=== PATIENT | female | born 2000 | race Caucasian/White ===

== ENCOUNTER 2020-10-01 10:54 | Outpatient (REF) | payer BC, SELFPAY | END 2020-10-01 10:55 | disposition home or self-care (01) | LOC: HO.LAB 10:54 | PROVIDERS: Visit Provider Internal Medicine | DX: Z20.828 Contact with and (suspected) exposure to other viral communicable diseases (principal) | CPT/HCPCS: C9803; U0003 ==

== ENCOUNTER 2021-06-28 21:56 | Emergency (ER) | payer BC, MEDICAID, SELFPAY ==
[2021-06-28 22:21] VITALS: BP 109/73; PULSE 96; RESP 18; TEMP 37.1; O2SAT 98; BMI 34.0
[2021-06-28 23:03] VITALS: BP 116/71; PULSE 92; RESP 20; TEMP 37.1; O2SAT 98
--- NOTE | 2021-06-29 00:02 | PC.NURSE ---
Per roque Duff to v/o tylenol, motrin and LMX cream for pt's pain 2/2 cyst.
[2021-06-29 00:11] VITALS: BP 98/64; PULSE 84; RESP 15; TEMP 36.9; O2SAT 99
[2021-06-29] MEDS: Ibuprofen 600 MG TABLET PO (00:13)
[2021-06-29] MEDS: Lidocaine 4 % Cream KIT 1 APPL TOPICAL (00:14)
[2021-06-29] MEDS: Acetaminophen 325 MG TABLET 650 MG PO (00:14)
--- NOTE | 2021-06-29 01:19 | ED_ITS ---
HPI - Skin/Abscess/Foreign Bdy General Chief complaint: Skin/Abscess/Foreign Body Stated complaint: abscess Time Seen by Provider: 06/29/21 00:59 Source: patient Mode of arrival: ambulatory Limitations: no limitations History of Present Illness HPI narrative: Patient comes to the emergency room complaining of a cyst in the left buttocks. Patient states this is the 3rd 1 she has had in the same spot. Patient was instructed to follow up with her primary care physician for referral to surgery for marsupialization, however patient forgot about it and did not follow up. This time, patient states that the abscess has been present for about a week, getting bigger, more tender. Patient denies fever or chills. Patient has tried warm compresses and [id number] pain medications without success Related Data Previous Rx's Medication Instructions Recorded cephalexin 750 mg capsule (Keflex) 750 mg PO BID #14 cap 06/29/21 doxycycline hyclate 100 mg capsule 100 mg PO BID #14 cap 06/29/21 hydrocodone 10 mg-acetaminophen 1 tab PO Q4-6H PRN #7 tab 06/29/21 300 mg tablet (Vicodin HP) ibuprofen 600 mg tablet 600 mg PO TID PRN #14 tab 06/29/21 Allergies Allergy/AdvReac Type Severity Reaction Status Date / Time bee pollen [BEE STINGS] Allergy Unknown SWELLING Verified 06/28/21 22:20 Sulfa (Sulfonamide Allergy Unknown SWELLING Verified 06/28/21 22:20 Antibiotics) WITH [SULFA (SULFONAMIDE RECTAL ANTIBIOTICS)] BLEEDING tree nut [TREE NUT] Allergy Unknown SWELLING/RA Verified 06/28/21 22:20 Review of Systems Review of Systems: Constitutional : No Weight loss, No Fever, No Chills, No Night Sweats, No Fatigue, No Malaise ENT/Mouth : No Hearing loss, No Ear Pain, No Nasal Congestion, No Sinus Pain, No Hoarseness, No sore throat, No Rhinorrhea, No Swallowing Difficulty Eyes: No Eye Pain, No Swelling, No Redness, No Foreign Body, No Discharge, No Vision Changes Cardiovascular : No Chest Pain, No SOB, No Dyspnea on Exertion, No Orthopnea, No Edema, No Palpitations Respiratory : No Cough, No Sputum, No Wheezing, No Smoke Exposure, No Dyspnea Gastrointestinal : No Nausea, No Vomiting, No Diarrhea, No Constipation, No abdominal Pain, No Hematochezia, No Melena Genitourinary : no irregular bleeding, No Dysuria, No Urinary Frequency, No Hematuria, No Urinary Incontinence, No Urgency, No Flank Pain, No Urinary Flow Changes, No Hesitancy Musculoskeletal : No joint pain, No Myalgias, No Joint Swelling Skin : Abscess in the left buttocks Neuro : No Weakness, No Numbness, No Paresthesias, No Loss of Consciousness, No Dizziness, No Headache Psych : No Anxiety/Panic, No Depression, No SI/HI/AH/VH, No Social Issues, Heme/Lymph: No Bruising, No Bleeding,No Lymphadenopathy Endocrine : No Polyuria, No Polydipsia, No Temperature Intolerance [facility] Social History Social History Advance Directives: No Advance Directives Information Provided: No Patient : No Physical Exam Vital Signs: Vital Signs: Last Vital Signs Temp 98.4 F 06/29/21 00:11 Pulse 82 06/29/21 01:36 Resp 17 06/29/21 01:36 BP 95/54 L 06/29/21 01:36 Pulse Ox 98 06/29/21 01:36 Body Mass Index 34.0 Const: Other: Appearance: Alert. Oriented X3. No acute distress. Eyes: Pupils equal, round and reactive to light. ENT: Pharynx normal. Neck: Normal inspection. Neck supple. No lymph nodes noted. No crepitus CVS: Normal heart rate and rhythm. Pulses normal. Normal S1 and S2 Respiratory: No respiratory distress. Breath sounds normal. No Wheezing. No rales Abdomen: Soft and nontender. No rigidity. No distention. good BS x4 Skin: Skin warm and dry. Normal skin color. 3 cm x 3 cm abscess in the left side of the buttocks and a 1 cm x 2 cm pilonidal abscess was visualized with bedside ultrasound, currently not draining. Extremities: No lower extremity edema. No lower extremity edema. No Lacerations. No Rash Neuro: Oriented X 3. No motor deficit. No sensory deficit. Moving all ex termities. No slurred speech. Course Course Course Narrative: Two cysts were drained, patient tolerated well the procedure. Procedures Abscess I/D Site: other (Pilonidal) Local Anesthetic: lidocaine 2% Amount of anesthesia used (mL): 15 Technique: incised with blade and ultrasound guided Amount of fluid expressed (mL): 30 Sent for culture/gram staining?: No Irrigation: No Packing used?: [email or web address] Discharge Plan Discharge Clinical Impression: Abscess of skin or subcutaneous tissue Patient Disposition: Home, Self-Care Instructions: Pilonidal Cyst (ED) Additional Instructions: Please follow-up with your primary care physician. You may need a referral to surgery for removal of the cyst. Please follow-up with your primary care physician tomorrow. If you have any worsening or new symptoms, please return to the emergency room or call 911 Prescriptions: New ibuprofen 600 mg tablet 600 mg PO TID PRN (Reason: fever or pain) Qty: 14 RF: 0 doxycycline hyclate 100 mg capsule 100 mg PO BID Qty: 14 RF: 0 cephalexin [Keflex] 750 mg capsule 750 mg PO BID Qty: 14 RF: 0 hydrocodone-acetaminophen [Vicodin HP] 10-300 mg tablet 1 tab PO Q4-6H PRN (Reason: pain) Qty: 7 RF: 0
[2021-06-29] MEDS: Lidocaine HCl 2 % 20 ML VIAL INFILTRATI (01:35)
[2021-06-29 01:36] VITALS: BP 95/54; PULSE 82; RESP 17; O2SAT 98
[2021-06-29 03:00] VITALS: BP 114/72; PULSE 82; RESP 17; O2SAT 97
== END 2021-06-29 03:07 | disposition home or self-care (01) ==
PROVIDERS: Emergency Provider Emergency Medicine; PCP Internal Medicine
DX: L05.01 Pilonidal cyst with abscess (principal)
CPT/HCPCS: 10060; 10080; 99284

== ENCOUNTER 2022-01-19 19:24 | Emergency (ER) | payer BC, SELFPAY ==
[2022-01-19 20:52] VITALS: BP 117/69; PULSE 80; RESP 16; TEMP 37.4; O2SAT 99; BMI 33.4
--- NOTE | 2022-01-19 21:06 | PC.NURSE ---
Unable to provide UA at this time.
[2022-01-19 21:07] LABS: MANUAL DIFF FLAG NO
[2022-01-19 21:11] LABS: Basophils Percent Auto 0.4 % (0-2); Eosinophils Absolute Auto 0.1 X10*3/uL (0.0-0.4); Eosinophils Percent Auto 0.7 % (0-4); Hematocrit 32.8 % (37.0-47.0); Hemoglobin 10.6 g/dl (12.0-16.0); Imm Gran Abs Auto 0.03 X10*3/uL (0.00-0.03); Imm Gran Pct Auto 0.3 % (0.0-0.4); Lymphocytes Absolute Auto 1.4 X10*3/uL (1.2-4.9); Lymphocytes Percent Auto 14.7 % (20-40); Mean Corpuscular HGB Conc 32.3 g/dl (31.0-35.0); Mean Corpuscular Hemoglobin 28.6 pg (27.0-33.0); Mean Corpuscular Volume 88.6 fL (80.0-98.0); Mean Platelet Volume 9.8 fL (9.4-12.3); Monocytes Absolute Auto 0.4 X10*3/uL (0.1-1.2); Monocytes Percent Auto 3.7 % (2-11); Neutrophils Absolute Auto 7.7 x10*3/uL (2.0-8.3); Neutrophils Percent Auto 80.2 % (45-73); Platelet Count 310 X10*3/uL (160-400); Red Cell Distribution Width 13.6 % (11.0-16.0); White Blood Count 9.6 X10*3/uL (4.8-10.8)
[2022-01-19 21:26] LABS: Alanine Aminotransferase 23 U/L (0-31); Albumin Level 4.4 g/dL (3.5-5.0); Alkaline Phosphatase 67 U/L (39-117); Anion Gap 15 (12-20); Aspartate Amino Transferase 18 U/L (5-31); Bilirubin Total 0.3 mg/dL (0.0-1.0); Blood Urea Nitrogen 12 mg/dL (9-16); Calcium 9.7 mg/dL (8.4-10.2); Carbon Dioxide 21 mmol/L (22-29); Chloride 107 mmol/L (96-108); Creatinine Clr Calc Pharmacy 148.1; Estimated Glomerular Filt Rate > 60; Glucose Random 110 mg/dL (60-115); Lipase 27 U/L (8-78); Potassium 3.6 mmol/L (3.3-5.1); Sodium 139 mmol/L (135-145); Total Protein 8.1 g/dL (6.5-8.0)
[2022-01-19 23:19] LABS: HCG Quantitative < 2 mIU/mL
== END 2022-01-20 01:26 | disposition left against medical advice (07) ==
PROVIDERS: Emergency Provider Emergency Medicine
DX: R10.9 Unspecified abdominal pain (principal); M54.50 Low back pain, unspecified; Z79.899 Other long term (current) drug therapy
CPT/HCPCS: 36415; 80053; 83690; 84702; 85025; 99282